=== PATIENT | female | born 1990 | race Caucasian/White ===

== ENCOUNTER 2017-04-12 04:45 | Emergency (ER) | payer OTHER ==
[~2017-04-12] VITALS: Ht 172.7 cm; Wt 74.8 kg
[2017-04-12 04:52] VITALS: BP 126/81
--- NOTE | 2017-04-12 04:59 | NUR ---
PT TAKEN TO BED 3
--- NOTE | 2017-04-12 05:02 | NUR ---
PATIENT PRESENTS TO ED WITH C/O Left ear and TMJ area pain since yesterday getting worse. PAIN 10/10 PT DENIES N/V/D; SKIN IS PINK/WARM/DRY; AAOX4 WITH EVEN AND STEADY GAIT; LUNGS CLEAR BL; HR EVEN AND REGULAR; PT DENIES ANY FEVER, CP, SOB, OR COUGH AT THIS TIME; PATIENT STATES PAIN OF 10/10 AT THIS TIME; VSS; PATIENT POSITIONED FOR COMFORT; HOB ELEVATED; BEDRAILS UP X2; BED DOWN. ER MD MADE AWARE OF PT STATUS.
--- NOTE | 2017-04-12 05:08 | NUR ---
Dr. Hartman evaluating patient at bedside.
[2017-04-12] MEDS ORDERED: KETOROLAC 30 MG/ML VIAL IM ONE (05:15)
[2017-04-12] MEDS ORDERED: HYDROcodone/APAP 5/325 MG 1 TAB TAB PO ONE (05:15)
--- NOTE | 2017-04-12 05:39 | NUR ---
Patient discharged with v/s stable. Written and verbal after care instructions given and explained. Patient verbalized understanding. Ambulatory with steady gait. All questions addressed prior to discharge. Advised to follow up with PMD.
[2017-04-12 05:41] VITALS: BP 126/81
== END 2017-04-12 05:39 | disposition home or self-care (01) ==
LOC: MED 04:45
CPT/HCPCS: 96372; 99283; J1885

== ENCOUNTER 2020-08-24 07:28 | Emergency (ER) | payer OTHER ==
[~2020-08-24] VITALS: Ht 170.2 cm; Wt 81.6 kg
[2020-08-24 07:29] VITALS: BP 117/81
--- NOTE | 2020-08-24 07:36 | NUR ---
Pt at bedside from triage.
--- NOTE | 2020-08-24 07:36 | NUR ---
Patient ambulated to bed 7. RN evaluating patient at bedside.
--- NOTE | 2020-08-24 07:40 | NUR ---
Dr. Howell is evaluating the patient at bedside.
--- NOTE | 2020-08-24 07:41 | NUR ---
29 y/o A&OX4 female c/o left ear pain 10/10 X4days constant that radiates to left jaw with yellow/green discharge. Pt states she took midol with no relief. Pt states nausea but no vomiting currently. No fever or chills. No PMH or RX Allergies to Bactrium.
[2020-08-24] MEDS ORDERED: KETOROLAC 60 MG/2 ML VIAL IM ONE (07:45)
[2020-08-24 07:54] VITALS: BP 117/81
--- NOTE | 2020-08-24 07:55 | NUR ---
Patient discharged with v/s stable. Written and verbal after care instructions given and explained. Patient alert, oriented and verbalized understanding of instructions. Ambulatory with steady gait. All questions addressed prior to discharge. ID band removed. Patient advised to follow up with PMD. Rx of cortisporin otic suspension 4drops QID, motrin 800mg 1 tab TID PO PRN given. Patient educated on indication of medication including possible reaction and side effects. Opportunity to ask questions provided and answered.
== END 2020-08-24 07:55 | disposition home or self-care (01) ==
LOC: MED 07:28
DX: H60.92 Unspecified otitis externa, left ear (principal); Z98.890 Other specified postprocedural states; Z88.1 Allergy status to other antibiotic agents; Z88.2 Allergy status to sulfonamides
CPT/HCPCS: 96372; 99283; J1885